=== PATIENT | male | born 1955 | race Caucasian/White ===

== ENCOUNTER 2020-05-16 09:04 | Inpatient (IN) ==
--- NOTE | 2020-04-19 14:13 | PAT Medication Instructions ---
Medication Instructions Date of Service April 19, 2020 Home Medications amlodipine-benazepril 1 cap PO QAM aspirin [Aspir-81] 81 mg PO DAILY atorvastatin 20 mg PO QAM bupropion HCl 150 mg PO QAM diclofenac sodium 75 mg PO UD PRN furosemide 20 mg PO QAM omeprazole 20 mg PO QAM ASK your surgeon for instructions diclofenac sodium 75 mg PO UD PRN DO NOT take the morning of surgery amlodipine-benazepril 1 cap PO QAM furosemide 20 mg PO QAM Take morning of surgery With a small sip of water, OTHERWISE NOTHING TO EAT OR DRINK AFTER MIDNIGHT: aspirin [Aspir-81] 81 mg PO DAILY atorvastatin 20 mg PO QAM bupropion HCl 150 mg PO QAM omeprazole 20 mg PO QAM Insulin Dependent Diabetic Patients * Test your blood sugar the morning of surgery * If Blood Sugar is GREATER THAN 150, take HALF of your regular dose of: * If Blood Sugar is LESS THAN 150, DO NOT TAKE ANY: Other Notes If you have any questions please call us at [phone] or [phone] or or [phone]
--- NOTE | 2020-04-23 08:06 | History & Physical Report ---
Date of Service April 23, 2020 date of surgery: 05-16-20 Assessment & Plan (1) Arthritis of right knee: Risks and benefits of procedure discussed in detail today, patient would like to proceed with a Right total knee replacement at [facility] as scheduled. will obtain medical clearance prior to surgery as well as obtain PATs at [facility]. Will place on ASA 81mg po bid x 1 month post op, f/u 2 weeks post op for routine post-operative care and x-ray, sooner if having any problems. will make arrangements for HHPT at the time of discharge. At this point in time, has failed conservative measures and would like to proceed with surgical intervention. The risks and benefits have been discussed including, but not limited to, risk of infection, nerve injury, stiffness, loss of motion, failure to improve, etc. Reasonable outcomes and options of treatment were discussed. An explanation of appropriate alternatives to the procedure that may be advantageous were discussed and their risks and benefits, as well as the risks and benefits of not proceeding with treatment. I offered to answer any additional inquiries concerning the treatment involved. All the patient's questions were answered. The patient is agreeable, understanding of the treatment plan and alternatives, and wishes to proceed with the treatment plan. History of Present Illness Chief Complaint: Right knee pain Primary Care Provider: Isabela Chan Mr Fox is a 65 year old male who complains of Right knee pain, presents for pre-op evaluation prior to a right total knee replacement at [facility]. he complains of pain and decreased range of motion. he states that the symptoms have been chronic non-traumatic and that his symptoms occur constantly. He is former patient of Dr Gallegos, has undergone both cortisone and visco injections without any relief. he has tried PO NSAIDs including IBU, Aleve and Diclofenac without relief. Currently the patient states that the symptoms are moderate and the pain is described as aching, dull and sharp. he has diffuse pain to the knee but greatest medial compartment. he rates his current pain as 8/10. Allergies Allergy/AdvReac Type Severity Reaction Status Date / Time No Known Allergies Allergy Mild Unverified 04/18/20 14:14 Home Medications Home Medications Medication Instructions Recorded Confirmed Type amlodipine-benazepril 1 cap PO QAM 04/18/20 04/18/20 History aspirin [Aspir-81] 81 mg PO DAILY 04/18/20 04/18/20 History atorvastatin 20 mg PO QAM 04/18/20 04/18/20 History bupropion HCl 150 mg PO QAM 04/18/20 04/18/20 History diclofenac sodium 75 mg PO UD PRN 04/18/20 04/18/20 History furosemide 20 mg PO QAM 04/18/20 04/18/20 History omeprazole 20 mg PO QAM 04/18/20 04/18/20 History Past Med/Surg History Medical History Acid reflux Hyperlipidemia Hypertension Morbid obesity Osteoarthritis Prediabetes A1C 6.4% 03/2020 Surgical History History of carpal tunnel surgery of left wrist History of carpal tunnel surgery of right wrist Family History Unknown No family history of adverse response to anesthesia Social History Preferred Language: Irish Communication Ability: Effective Electroplater Apprentice Required: No Beliefs That Will Affect Care: None Current Living Situation: Spouse Other Information That Helps Us Care for You: No Feels Safe at Home: Yes Smoking Status: Former smoker Do You Dip or Chew Tobacco: No ; Smoking End Date: >40 YR AGO ; Hx Alcohol Use: No Hx Substance Use: No Review of Systems Review of Systems: All systems reviewed & are unremarkable except as noted in HPI & below Constitutional: no fever, no chills and no sweats Respiratory: no cough and no dyspnea Cardiovascular: no chest pain, no dyspnea and no orthopnea Gastrointestinal: no abdominal pain, no nausea and no vomiting Musculoskeletal: as per Subjective / HPI Physical Exam Physical Exam: Ht: 5ft 8in Wt: 137.4kg BP: 148/89 Constitutional: WD/WN, vitals as above no acute distress Respiratory: normal respiratory effort, lungs clear to auscultation no respiratory distress, no labored breathing and does not use accessory muscles Cardiovascular: RRR, no murmur, no edema Gastrointestinal (Abdomen): normal bowel sounds, soft, nontender, no hepatosplenomegaly Musculoskeletal: Knee: + knee abnormal to inspection (Right knee), + deformity (varus), + effusion (+1 effusion), + limited ROM of knee (ROM 0/3/110), + knee ROM with crepitation, + joint line tenderness (medial joint line) and + Mahnaz's sign positive; no skin erythema, no ecchymosis, no valgus laxity, no varus laxity, anterior drawer test negative, Sultana's sign negative and pivot shift test negative Results & Data Results & Data ([facility]) Laboratory Results Laboratory Results WBC 6.83 K/uL (4.8-10.8) 04/23/20 11:45 RBC 6.03 M/uL (4.7-6.1) 04/23/20 11:45 Hgb 17.1 g/dL (14.0-18.0) 04/23/20 11:45 Hct 51.4 % (42-52) 04/23/20 11:45 MCV 85.2 fL (80-100) 04/23/20 11:45 MCH 28.4 pg (25-34) 04/23/20 11:45 MCHC 33.3 g/dL (32-36) 04/23/20 11:45 RDW Std Deviation 43.4 fL (36.4-46.3) 04/23/20 11:45 RDW Coeff of Imani 14.0 % (11.5-14.5) 04/23/20 11:45 Plt Count 255 K/uL (130-400) 04/23/20 11:45 MPV 9.2 fL (7.4-10.4) 04/23/20 11:45 Immature Gran % (Auto) 0.1 % 04/23/20 11:45 Neut % (Auto) 68.9 % 04/23/20 11:45 Lymph % (Auto) 19.3 % 04/23/20 11:45 Door % (Auto) 7.6 % 04/23/20 11:45 Eos % (Auto) 3.5 % 04/23/20 11:45 Baso % (Auto) 0.6 % 04/23/20 11:45 Neut # (Auto) 4.70 K/uL (1.4-6.5) 04/23/20 11:45 Lymph # (Auto) 1.32 K/uL (1.2-3.4) 04/23/20 11:45 Door # (Auto) 0.52 K/uL (0.11-0.59) 04/23/20 11:45 Eos # (Auto) 0.24 K/uL (0-0.5) 04/23/20 11:45 Baso # (Auto) 0.04 K/uL (0-0.2) 04/23/20 11:45 Immature Gran # (Auto) 0.01 K/uL (0.00-0.02) 04/23/20 11:45 PT 10.8 Seconds (9.0-12.0) 04/23/20 11:45 INR 1.0 (0.9-1.1) 04/23/20 11:45 APTT 27.9 Seconds (21.0-31.0) 04/23/20 11:45 PTT Ratio 1.0 04/23/20 11:45 Urine Color Dark Yellow 04/23/20 11:45 Urine Appearance Cloudy (Clear) A 04/23/20 11:45 Urine pH 5.0 (4.5-7.5) 04/23/20 11:45 Ur Specific [place] 1.045 (1.000-1.030) H 04/23/20 11:45 Urine Protein 2+ (Negative) H 04/23/20 11:45 Urine Glucose (UA) Negative (Negative) 04/23/20 11:45 Urine Ketones Trace (Negative) H 04/23/20 11:45 Urine Blood Negative (Negative) 04/23/20 11:45 Urine Nitrite Positive (Negative) A 04/23/20 11:45 Urine Bilirubin Negative (Negative) 04/23/20 11:45 Urine Urobilinogen Negative (Negative) 04/23/20 11:45 Ur Leukocyte Esterase Trace (Negative) H 04/23/20 11:45 Urine WBC (Auto) 1-5 /hpf (0-5) 04/23/20 11:45 Urine RBC (Auto) 0-4 /hpf (0-4) 04/23/20 11:45 U Hyaline Cast (Auto) 1-5 /lpf (0-5) 04/23/20 11:45 U Epithel Cells (Auto) 20-30 /lpf (0-5) H 04/23/20 11:45 Urine Bacteria (Auto) Negative (Negative) 04/23/20 11:45 Urine Mucus Present (None Prsent) A 04/23/20 11:45 Blood Type O Negative 04/23/20 11:45 Antibody Screen NEGATIVE 04/23/20 11:45 Diagnostic Findings right knee x-ray from March 2020 showing complete loss joint space medial compartment with overall varus alignment, there is also narrowing of the lateral compartment and patellofemoral joint. there is osteophyte formation, subchondral sclerosis noted, no loose bodies, no acute bony pathology. overall impression tricompartmental degenerative changes to the right knee with varus alignment.
--- NOTE | 2020-04-23 11:29 | Anesthesiology Consultation ---
Date of Service April 23, 2020 Assessment & Plan (1) Encounter for pre-operative examination: COVID Status: As of 04/23 assessment, patient denies travel to endemic area, known exposure/sick contacts, or symptoms of COVID19. Patient instructed to follow strict social distancing guidelines, wear a mask in public and avoid travel for 14 days prior to surgery. Preoperative COVID19 testing to be completed [place] [facility] [place]. Patient made aware to self-isolate as much as possible between COVID testing and surgery. Chart Review Chart Review: Acceptable Risk for Surgery (pending surgeon-ordered PCP clearance 05/09) and Patient seen in Pre Admission Testing Teaching & Discussion Instructed NPO after midnight before surgery, except medications with 15 cc of water. Medication instructions provided according to the PAT guidelines. History Surgery Operation Date: 05/16/20 11:20 Proposed Procedures p Right Total Knee Arthroplasty - Cristopher Spencer DO Height/Weight Height: 5 ft 8 in Weight: 137.1 kg Allergies Allergy/AdvReac Type Severity Reaction Status Date / Time No Known Allergies Allergy Mild Unverified 04/18/20 14:14 Medications Home Medications Medication Instructions Recorded Confirmed Last Taken amlodipine-benazepril 1 cap PO QAM 04/18/20 04/18/20 Unknown aspirin [Aspir-81] 81 mg PO DAILY 04/18/20 04/18/20 Unknown atorvastatin 20 mg PO QAM 04/18/20 04/18/20 Unknown bupropion HCl 150 mg PO QAM 04/18/20 04/18/20 Unknown diclofenac sodium 75 mg PO UD PRN 04/18/20 04/18/20 Unknown furosemide 20 mg PO QAM 04/18/20 04/18/20 Unknown omeprazole 20 mg PO QAM 04/18/20 04/18/20 Unknown Past Medical History Medical History Acid reflux Hyperlipidemia Hypertension Morbid obesity Osteoarthritis Prediabetes A1C 6.4% 03/2020 Exercise / Class Metabolic Activity III < 4 Walking/Shop/Light housework (No CP or SOB with ambulation, using cane for assistance at times due to knee pain) Past Family History Family History Unknown No family history of adverse response to anesthesia Past Surgical History Surgical History History of carpal tunnel surgery of left wrist History of carpal tunnel surgery of right wrist Past Anesthesia History No Hx of Anesthesia Complications and No Family Hx of Anesthesia Complications History of PONV No Hx of PONV and No Hx of Motion Sickness Social History Smoking Status: Former smoker Do You Dip or Chew Tobacco: No Smoking End Date: >40 YR AGO Hx Alcohol Use: No Hx Substance Use: No substance use type: does not use Review of Systems Pt denies any recent chest pain, shortness of breath, palpitations, cough, fever or URI. Physical Exam Vital Signs BP: 136/80 P: 55bpm SPO2: 94% RA T: 98.3 F R: 18 Constitutional + morbidly obese ENMT Mouth: + dental restorations (crown on lower R side) and + macroglossia; no chipped teeth and no loose teeth Thyromental Distance: > or= 3.5 Finger Breadths (3.5) Mallampati Class: III Neck + short neck and + thick neck; neck extension not limited Respiratory normal respiratory effort Auscultation: lungs clear to auscultation bilaterally and + diminished lung sounds (B/L) Cardiovascular Rate/Rhythm: regular rhythm and + bradycardic Heart Sounds: no murmur Testing Laboratory Results 04/23/20 11:45 PT 10.8 Seconds (9.0-12.0) 04/23/20 11:45 INR 1.0 (0.9-1.1) 04/23/20 11:45 APTT 27.9 Seconds (21.0-31.0) 04/23/20 11:45 Urine Color Dark Yellow 04/23/20 11:45 Urine Appearance Cloudy (Clear) A 04/23/20 11:45 Urine pH 5.0 (4.5-7.5) 04/23/20 11:45 Ur Specific [place] 1.045 (1.000-1.030) H 04/23/20 11:45 Urine Protein 2+ (Negative) H 04/23/20 11:45 Urine Glucose (UA) Negative (Negative) 04/23/20 11:45 Urine Ketones Trace (Negative) H 04/23/20 11:45 Urine Nitrite Positive (Negative) A 04/23/20 11:45 Ur Leukocyte Esterase Trace (Negative) H 07/06/20 11:45 Urine WBC (Auto) 1-5 /hpf (0-5) 04/23/20 11:45 Urine RBC (Auto) 0-4 /hpf (0-4) 04/23/20 11:45 U Hyaline Cast (Auto) 1-5 /lpf (0-5) 04/23/20 11:45 U Epithel Cells (Auto) 20-30 /lpf (0-5) H 04/23/20 11:45 Urine Bacteria (Auto) Negative (Negative) 04/23/20 11:45 Blood Type O Negative 04/23/20 11:45 Antibody Screen NEGATIVE 04/23/20 11:45 03/29/20 SODIUM: 140 POTASSIUM: 5.1 CHLORIDE: 103 CO2: 30 BUN: 21 CREATININE: 1.1 GLUCOSE: 127 A1C: 6.4% Electrocardiogram Date: 04/23/20 Findings: + SB @ (56bpm) Possible inferior infarct, age undetermined. No significant change compared to EKG from 08/13/11. Chest X-Ray Date: 04/23/20 IMPRESSION: 1. No acute cardiopulmonary findings. 2. Stable prominence of the contour for the ascending aorta since radiographs of August 13, 2011. This could be due to a tortuous or dilated ascending aorta. 3. Stable mild cardiomegaly. Echocardiogram Date: 08/21/15 1. Normal left ventricular size and systolic function. EF 60-65%. No regional wall motion abnormalities visualized. Mild concentric left ventricular hypertrophy. Type II diastolic dysfunction. 2. The left atrium is mildly dilated. 3. Aortic valve sclerosis mild, without significant aortic valvular stenosis. 4. Technically difficult study; enhanced with IV Definity. 5. No prior study available for comparison.
--- NOTE | 2020-04-23 12:13 | XRay Report ---
XR chest Pre-admission PA/Lat CLINICAL HISTORY: Preoperative evaluation. COMPARISON STUDY: Chest radiograph August 13, 2011. FINDINGS: Lung volumes are normal. Lungs are clear. There is no pneumothorax or pleural effusion. Mil d cardiomegaly is unchanged. Mediastinal contours are stable. Prominence of the contour for the ascen ding aorta is unchanged. There is no evidence for pulmonary edema. IMPRESSION: 1. No acute cardiopulmonary findings. 2. Stable prominence of the contour for the ascending aorta since radiographs of August 13, 2011. Th is could be due to a tortuous or dilated ascending aorta. 3. Stable mild cardiomegaly. ACT 112: Negative or not required by law. Electronically signed by: Amol Verdin M.D. 04/23/2020 12:11 PM
[2020-04-23 12:14] LABS: Mean Corpuscular Hgb Conc 33.3 g/dL (32-36); Mean Platelet Volume 9.2 fL (7.4-10.4); Platelet Count 255 K/uL (130-400)
[2020-04-23 12:17] LABS: Appearance Urine Cloudy (Clear); Bacteria Urine Automated Negative (Negative); Blood Urine Negative (Negative); Color Urine Dark Yellow; Epithelial Cell Urine Auto 20-30 /lpf (0-5); Glucose Urine UA Negative (Negative); Ketones Urine Trace (Negative); Leukocyte Esterase Urine Trace (Negative); Nitrite Urine Positive (Negative); Protein Urine 2+ (Negative); Specific Gravity Urine 1.045 (1.000-1.030); Urobilinogen Urine Negative (Negative)
[2020-04-23 12:25] LABS: Partial Thromboplastin Time 27.9 Seconds (21.0-31.0); Prothrombin Time 10.8 Seconds (9.0-12.0)
[2020-04-23 12:29] LABS: Bilirubin Urine Negative (Negative); Ictotest Urine Negative (Negative)
[2020-04-23 12:30] LABS: Mucus Urine Present (None Prsent); RBC Urine Automated 0-4 /hpf (0-4)
[2020-04-23 12:39] LABS: Basophils # (auto) 0.04 K/uL (0-0.2); Basophils % (auto) 0.6 %; Eosinophils # (auto) 0.24 K/uL (0-0.5); Eosinophils % (auto) 3.5 %; Hematocrit (blood only) 51.4 % (42-52); Hemoglobin 17.1 g/dL (14.0-18.0); Immature Granulocytes # (auto) 0.01 K/uL (0.00-0.02); Immature Granulocytes % (auto) 0.1 %; Lymphocytes # (auto) 1.32 K/uL (1.2-3.4); Lymphocytes % (auto) 19.3 %; Mean Corpuscular Hemoglobin 28.4 pg (25-34); Mean Corpuscular Volume 85.2 fL (80-100); Monocytes # (auto) 0.52 K/uL (0.11-0.59); Monocytes % (auto) 7.6 %; Neutrophils % (auto) 68.9 %; RDW Standard Deviation 43.4 fL (36.4-46.3); Red Blood Count 6.03 M/uL (4.7-6.1); White Blood Count 6.83 K/uL (4.8-10.8)
--- NOTE | 2020-04-24 06:25 | Electrocardiogram Report ---
Test Reason : Blood Pressure : / mmHG Vent. Rate : 056 BPM Atrial Rate : 056 BPM P-R Int : 176 ms QRS Dur : 088 ms QT Int : 428 ms P-R-T Axes : 048 029 -04 degrees QTc Int : 413 ms Sinus bradycardia Possible Inferior infarct , age undetermined Abnormal ECG When compared with ECG of 13-AUG-2011 14:07, No significant change was found Confirmed by Lambert Patel ([id number]) on 04/24/2020 6:25:03 AM Referred By: Cristopher Spencer Confirmed By:Lambert Patel
[~2020-05-16 09:04] MED LIST: ACETAMINOPHEN 500 MG TAB PO SCH; BUPIVACAINE 0.5 % 5 MG/1 ML PF 10ML VIAL ONE; CEFAZOLIN 3000MG 72.5 ML IV SCH; CeleBREX 200 MG CAP PO SCH; EPINEPHrine INJ 1 MG/ML AMP ONE; FAMOTIDINE 20 MG TAB PO SCH; GABAPENTIN 600 MG DOSE PO SCH; LR 500ML BOLUS, THEN 15ML/HR IV SCH; METOCLOPRAMIDE HCL 10 MG TABLET PO SCH; ROPIVACAINE 0.5% 5 MG/ML 30 ML VIAL ONE; ROPIVACAINE 0.5% HCL/PF 150 MG, BUPIVACAINE 0.5% MPF 30 ML, EPINEPHrine 30MG/30ML (OR U... INFIL SCH; TRANEXAMIC ACID 1,000 MG **IV Intra-op IV SCH; TRANEXAMIC ACID 1,000 MG **IV Pre-op IV SCH; dexAMETHasone 4 MG TAB PO SCH
[2020-05-16] MEDS ORDERED: MIDAZOLAM HCL 1 MG/ML 2ML VIAL ONE (10:00)
[2020-05-16] MEDS ORDERED: PROPOFOL IV EMULSION 10 MG/ML 20 ML VIAL IV ONE ×3 (10:00)
[2020-05-16] MEDS ORDERED: fentaNYL citrate 100 MCG/2 ML VIAL ONE (10:00)
[2020-05-16] MEDS ORDERED: LIDOCAINE HCL 2% 2 ML VIAL/AMP(20MG/ML) INFIL ONE (10:01)
[2020-05-16] MEDS ORDERED: ONDANSETRON INJ 2 MG/ML 2 ML VIAL ONE (10:01)
--- NOTE | 2020-05-16 10:01 | History & Physical Bridge Note ---
Date of Service May 16, 2020 History & Physical Bridge Note I have examined the patient, reviewed the History & Physical and in the interval since the performance of the History & Physical I have noted the following changes of clinical significance: no changes noted
[2020-05-16] MEDS ORDERED: BACITRACIN INJ 50,000 UNIT VIAL ONE (10:40)
[2020-05-16] MEDS ORDERED: ORTHO JOINT ANESTHETIC ONE (10:40)
--- NOTE | 2020-05-16 12:57 | Operative Report ---
Post Operative Report Pre & Post Diagnosis Operation Date: 05/16/20 11:20 Pre-Op Diagnosis: RIGHT KNEE OSTEOARTHRITIS Post-Op Diagnosis: RIGHT KNEE OSTEOARTHRITIS I identified the patient and participated in the time-out.: Yes Procedure Operation Date: 05/16/20 11:20 Actual Procedures p Right Total Knee Arthroplasty(Right) utilizing [employer] journey to non- block total knee arthroplasty size 6 femur 5 tibia 9 polyethylene 32 oval patella- Cristopher Spencer DO Surgeon Cristopher Spencer DO Motorman/Woman Hal CHAVEZ Estimated Blood Loss 5 Findings Consistent with Post-Op Diagnosis Patient presents with ongoing complaints of pain trouble to the right knee no response to conservative management patient has varus alignment subchondral cystic changes marginal osteophytes [id number] eburnated bone moderate to large effusion Specimens Bone and cartilage Drains Medium bore Hemovac Anesthesia Type MAC Spinal Regional Complications none Disposition Accompanied Patient To Recovery: No Disposition: Recovery Room Indications Patient presents with severe end-stage DJD varus alignment the above intraoperative findings noted patient fell attempted conservative management clinic physical therapy anti-inflammatories relative rest activity modification corticosteroid injections Visco supplementation. Description of Procedure After proper prepping and draping of the Right lower extremity anterior midline incision was made over the region of the extensor extensor mechanism after meticulous hemostasis was obtained and maintained in subcutaneous tissues a medial parapatellar incision was made The patella was subluxed lateralward the medial lateral gutter were cleaned from any hypertrophic synovitis and scar tissue of the distal femoral block was placed and the distal femoral osteotomy cut was made subsequently the chamfers anterior and posterior osteotomy cuts were made utilizing the 4-in-1 block the tibia was subsequently subluxed anteriorward medial and ateral meniscal remnants were excised in their entirety remnants of the anterior and posterior cruciate ligaments were excised in their entirety excellent exposure of the proximal tibia was obtained the tibial osteotomy guide was placed on the proximal tibial osteotomy cut was made once again the knee was irrigated with copious amounts of sterile saline solution the patella was subsequently everted lateralward thickened scar tissue around the patella was removed the patella was subsequently cut utilizing a freehand technique and was drilled prepared for final preparation and placement of patella socially flexion-extension gaps were checked and the equal and symmetric trials were placed to the appropriate femoral and tibial trials with poly-spacer being placed for equal flexion and extension gaps and full range of motion including extension to 0 and flexion to 140 the trial components after having b een taken to recovery range of motion was subsequently removed meticulous hemostasis was obtained and maintained subsequently a knee block injection of joint cocktail including ropivacaine 0.5% 150 mg. Bupivacaine 0.5% epinephrine 1-200,030 mL's toradol 30 mg dexamethasone 4 mg ketamine 10 mg clonidine 100 micrograms normal saline solution 30 mg was infiltrated into the soft tissues of the posterior knee medial lateral gutters and periosteal synovium special attention was paid to protect neurovascular structures at all times subsequently trial components having been removed the knee was irrigated with sterile saline solution. debris was removed the proximal tibia was subsequently prepared and was made ready for the placement of the tibial component tibial component was also cemented and tamped into position the femoral component was subsequently placed and cemented in the position the patellar component was subsequently cemented in position because hemostasis once again obtained and maintained wound having been thoroughly irrigated with debridement and debridement lavage was performed as well as a medial parapatellar incision closed with #1 Vicryl in interrupted fashion subcutaneous was closed with #2 Vicryl skin was closed with skin clips. PA-C was necessary for prepping and drapping as well as wound closure of deep fascia Sub cutaneous tissue and skin and was necessary for the case. A sterile compressive dressing was placed patient was taken to recovery in stable condition of report dictated by Tj I attest to the content of the Intraoperative Record and any orders documented therein. Any exceptions are noted below. I attest to the content of the Intraoperative Record and any orders documented therein. Any exceptions are noted below.
[2020-05-16] MEDS ORDERED: ePHEDrine sulfate 50 MG/ML AMP ONE (13:14)
--- NOTE | 2020-05-16 14:04 | XRay Report ---
XR knee RT 1 or 2V routine CLINICAL HISTORY: Surgical Post Op COMPARISON: 01/18/2011 DISCUSSION: There are postsurgical changes of a total right knee arthroplasty and patellar resurfacin g. The femoral and tibial components appear well seated. There is gas present within the soft tissues consistent with recent surgery. There are overlying skin eliceo and surgical drains. IMPRESSION: Postsurgical changes of a total right hip arthroplasty. ACT 112: Negative or not required by law. Electronically signed by: Enrique Cardoza M.D. 05/16/2020 2:03 PM
--- NOTE | 2020-05-16 15:02 | Anesthesiology Progress Note ---
Date of Service May 16, 2020 Anesthesia Post Procedure Vital Signs Vital Signs: Temp Pulse Pulse Resp BP Pulse Ox 05/16/20 15:00 67 16 130/69 93 05/16/20 14:45 66 14 122/71 93 05/16/20 14:30 65 17 122/55 L 92 05/16/20 14:15 68 15 120/51 L 93 05/16/20 14:00 36.8 C 68 16 121/66 92 05/16/20 13:50 70 16 115/51 L 95 05/16/20 13:40 71 15 108/53 L 97 05/16/20 13:33 36.2 C L 71 16 104/62 98 05/16/20 10:30 57 L 18 158/84 H 94 05/16/20 10:03 36.8 C 59 L 18 155/86 H 94 Pain Intensity Right Knee: Pain Intensity: 4 Transfer of Care Handoff Completed per policy Notes Mental Status: alert / awake / arousable and participated in evaluation Patient Amnestic to Procedure: Yes Nausea / Vomiting: adequately controlled Pain: adequately controlled Airway Patency, RR, SpO2: stable & adequate BP & HR: stable & adequate Hydration State: stable & adequate Neuraxial Anesthesia: was administered and sensory block is resolving Anesthetic Complications: no major complications apparent and Pt Satisfied with anesthetic care
[2020-05-16] MEDS ORDERED: MAGNESIUM HYDROXIDE SUSP 30 ML UDC PO PRN (16:00)
[2020-05-16] MEDS ORDERED: ONDANSETRON INJ 2 MG/ML 2 ML VIAL IV PRN (16:00)
[2020-05-16] MEDS ORDERED: HYDROmorphone INJ 0.5 MG/0.5 ML SYR IV PRN (16:00)
[2020-05-16] MEDS ORDERED: NALOXONE HCL 0.4 MG/1 ML VIAL/CARP IV PRN (16:00)
[2020-05-16] MEDS ORDERED: bisacodyL 10 MG SUPP PR PRN (16:00)
[2020-05-16] MEDS: SODIUM CHLORIDE 0.9% 1000ML 1,000 ML IV SCH (16:34)
[2020-05-16] MEDS: ACETAMINOPHEN 500 MG TAB PO SCH ×2 (16:34→21:40)
[2020-05-16] MEDS: FERROUS GLUCONATE 324 MG TAB PO SCH (17:13)
[2020-05-16] MEDS: OXYCODONE HCL IR 5 MG TAB (IMMEDIATE RELEASE) PO PRN (20:23)
[2020-05-16] MEDS: CEFAZOLIN 2000MG 2,000 MG/15 ML SYR IV SCH (20:23)
[2020-05-16] MEDS ORDERED: SENNA 8.6 MG TAB PO SCH (21:00)
[2020-05-16] MEDS: DOCUSATE SODIUM 100 MG CAP PO SCH (21:40)
[2020-05-16] MEDS: ASPIRIN 81 MG ECTAB PO SCH (21:40)
[2020-05-17] MEDS: SODIUM CHLORIDE 0.9% 1000ML 1,000 ML IV SCH (04:33)
[2020-05-17] MEDS: CEFAZOLIN 2000MG 2,000 MG/15 ML SYR IV SCH (05:31)
[2020-05-17] MEDS: ACETAMINOPHEN 500 MG TAB PO SCH ×2 (05:32→13:23)
[2020-05-17 07:02] LABS: Hemoglobin 14.7 g/dL (14.0-18.0); Mean Corpuscular Hemoglobin 28.2 pg (25-34); Mean Corpuscular Hgb Conc 33.4 g/dL (32-36); Mean Corpuscular Volume 84.5 fL (80-100); Platelet Count 243 K/uL (130-400); RDW Coefficient of Variation 13.8 % (11.5-14.5); RDW Standard Deviation 42.9 fL (36.4-46.3); Red Blood Count 5.21 M/uL (4.7-6.1); White Blood Count 15.48 K/uL (4.8-10.8)
[2020-05-17] MEDS: ASPIRIN 81 MG ECTAB PO SCH (07:21)
[2020-05-17] MEDS: DOCUSATE SODIUM 100 MG CAP PO SCH (07:21)
[2020-05-17] MEDS: FERROUS GLUCONATE 324 MG TAB PO SCH (07:22)
[2020-05-17] MEDS: OXYCODONE HCL IR 5 MG TAB (IMMEDIATE RELEASE) PO PRN ×2 (07:28→11:54)
[2020-05-17 07:38] LABS: BUN Creatinine Ratio 21.6 (10-20); Calcium 8.5 mg/dl (8.5-10.1); Creatinine Clr Calc Pharmacy 91.8 ml/min; Est GFR (Non-African American) 71.6; Potassium 4.1 mmol/L (3.5-5.1)
--- NOTE | 2020-05-17 07:59 | Orthopedic Progress Note ---
Date of Service May 17, 2020 Assessment & Plan (1) Arthritis of right knee: Postop day 1 status post right total knee arthroplasty. PT/OT protocols. Weightbearing as tolerated. DVT prophylaxis-aspirin p.o. twice daily, SCDs, EVELYNE umaña. Pain management as written. DC planning-Home health services upon discharge. Admission and Anticipated Discharge Date Admission Date: May 16, 2020 Subjective Postop day 1 Patient currently sitting up in his chair at the bedside. No complaints this morning. Denies any shortness of breath, chest pain, lightheadedness. States he is having a little soreness this morning in the knee but overall, pain is controlled. Patient states he is in a do home health services upon discharge. Physical Exam Physical Exam: Dressings are clean, dry, and intact. Calves are soft nontender. Neurovascular is intact. Toes are mobile. He has good dorsiflexion and plantarflexion of the right foot. VAC drainage was 175 from the previous shift. Results [facility]) Vital Signs (Past 12 Hours) Vital Signs Temp Pulse Resp BP BP Pulse Ox 05/17/20 07:16 36.8 C 71 17 156/78 H 95 05/17/20 04:13 36.6 C 67 14 150/80 H 96 05/16/20 23:11 36.6 C 72 14 154/72 H 92 Laboratory Results Laboratory Results WBC 15.48 K/uL (4.8-10.8) H 05/17/20 06:49 RBC 5.21 M/uL (4.7-6.1) 05/17/20 06:49 Hgb 14.7 g/dL (14.0-18.0) 05/17/20 06:49 Hct 44.0 % (42-52) 05/17/20 06:49 MCV 84.5 fL (80-100) 05/17/20 06:49 MCH 28.2 pg (25-34) 05/17/20 06:49 MCHC 33.4 g/dL (32-36) 05/17/20 06:49 RDW Std Deviation 42.9 fL (36.4-46.3) 05/17/20 06:49 RDW Coeff of Imani 13.8 % (11.5-14.5) 05/17/20 06:49 Plt Count 243 K/uL (130-400) 05/17/20 06:49 MPV 9.0 fL (7.4-10.4) 05/17/20 06:49 Immature Gran % (Auto) 0.1 % 04/23/20 11:45 Neut % (Auto) 68.9 % 04/23/20 11:45 Lymph % (Auto) 19.3 % 04/23/20 11:45 Luce % (Auto) 7.6 % 04/23/20 11:45 Eos % (Auto) 3.5 % 04/23/20 11:45 Baso % (Auto) 0.6 % 04/23/20 11:45 Neut # (Auto) 4.70 K/uL (1.4-6.5) 04/23/20 11:45 Lymph # (Auto) 1.32 K/uL (1.2-3.4) 04/23/20 11:45 Luce # (Auto) 0.52 K/uL (0.11-0.59) 04/23/20 11:45 Eos # (Auto) 0.24 K/uL (0-0.5) 04/23/20 11:45 Baso # (Auto) 0.04 K/uL (0-0.2) 04/23/20 11:45 Immature Gran # (Auto) 0.01 K/uL (0.00-0.02) 04/23/20 11:45 PT 10.8 Seconds (9.0-12.0) 04/23/20 11:45 INR 1.0 (0.9-1.1) 04/23/20 11:45 APTT 27.9 Seconds (21.0-31.0) 04/23/20 11:45 PTT Ratio 1.0 04/23/20 11:45 Sodium 141 mmol/L (136-145) 05/17/20 06:49 Potassium 4.1 mmol/L (3.5-5.1) 05/17/20 06:49 Chloride 110 mmol/L (98-107) H 05/17/20 06:49 Carbon Dioxide 25 mmol/L (21-32) 05/17/20 06:49 Anion Gap 6.0 (3-11) 05/17/20 06:49 BUN 23 mg/dl (7-18) H 05/17/20 06:49 Creatinine 1.08 mg/dl (0.6-1.4) 05/17/20 06:49 Est Cr Clr Drug Dosing 91.8 ml/min 05/17/20 06:49 Est GFR ( Amer) 83.0 05/17/20 06:49 Est GFR (Non-Af Amer) 71.6 05/17/20 06:49 BUN/Creatinine Ratio 21.6 (10-20) H 05/17/20 06:49 Glucose 147 mg/dl (70-99) H 05/17/20 06:49 Calcium 8.5 mg/dl (8.5-10.1) 05/17/20 06:49 Urine Color Dark Yellow 04/23/20 11:45 Urine Appearance Cloudy (Clear) A 04/23/20 11:45 Urine pH 5.0 (4.5-7.5) 04/23/20 11:45 Ur Specific [place] 1.045 (1.000-1.030) H 04/23/20 11:45 Urine Protein 2+ (Negative) H 04/23/20 11:45 Urine Glucose (UA) Negative (Negative) 04/23/20 11:45 Urine Ketones Trace (Negative) H 04/23/20 11:45 Urine Blood Negative (Negative) 04/23/20 11:45 Urine Nitrite Positive (Negative) A 04/23/20 11:45 Urine Bilirubin Negative (Negative) 04/23/20 11:45 Urine Urobilinogen Negative (Negative) 04/23/20 11:45 Ur Leukocyte Esterase Trace (Negative) H 04/23/20 11:45 Urine WBC (Auto) 1-5 /hpf (0-5) 04/23/20 11:45 Urine RBC (Auto) 0-4 /hpf (0-4) 04/23/20 11:45 U Hyaline Cast (Auto) 1-5 /lpf (0-5) 04/23/20 11:45 U Epithel Cells (Auto) 20-30 /lpf (0-5) H 04/23/20 11:45 Urine Bacteria (Auto) Negative (Negative) 04/23/20 11:45 Urine Mucus Present (None Prsent) A 04/23/20 11:45 Blood Type O Negative 04/23/20 11:45 Antibody Screen NEGATIVE 04/23/20 11:45
[2020-05-17] MEDS ORDERED: METOPROLOL SUCC 50MG EXT REL TAB PO SCH (09:00)
[2020-05-17] MEDS ORDERED: ENALAPRIL MALEATE 10 MG TAB PO SCH (09:00)
[2020-05-17] MEDS ORDERED: PANTOprazole 40 MG TAB PO SCH (09:00)
[2020-05-17] MEDS ORDERED: ATORVASTATIN 20 MG TAB PO SCH (09:00)
[2020-05-17] MEDS ORDERED: MULTIVITAMIN TAB PO SCH (09:00)
[2020-05-17] MEDS ORDERED: AMLODIPINE BESYLATE 5 MG TAB PO SCH (09:00)
[2020-05-17] MEDS ORDERED: BuPROPion XL 150 MG TABCR PO SCH (09:00)
--- NOTE | 2020-05-21 13:13 | Discharge Summary ---
Date of Service May 21, 2020 Admission HPI Per Admitting Provider Mr Fox is a 65 year old male who complains of Right knee pain, presents for pre-op evaluation prior to a right total knee replacement at [facility]. he complains of pain and decreased range of motion. he states that the symptoms have been chronic non-traumatic and that his symptoms occur constantly. He is former patient of Dr Gallegos, has undergone both cortisone and visco injections without any relief. he has tried PO NSAIDs including IBU, Aleve and Diclofenac without relief. Currently the patient states that the symptoms are moderate and the pain is described as aching, dull and sharp. he has diffuse pain to the knee but greatest medial compartment. he rates his current pain as 8/10. Admission Exam Per Admitting Provider Physical Exam: Ht: 5ft 8in Wt: 137.4kg BP: 148/89 Constitutional: WD/WN, vitals as above no acute distress Respiratory: normal respiratory effort, lungs clear to auscultation no respiratory distress, no labored breathing and does not use accessory muscles Cardiovascular: RRR, no murmur, no edema Gastrointestinal (Abdomen): normal bowel sounds, soft, nontender, no hepatosplenomegaly Musculoskeletal: Knee: + knee abnormal to inspection (Right knee), + deformity (varus), + effusion (+1 effusion), + limited ROM of knee (ROM 0/3/110), + knee ROM with crepitation, + joint line tenderness (medial joint line) and + Mahnaz's sign positive; no skin erythema, no ecchymosis, no valgus laxity, no varus laxity, anterior drawer test negative, Sultana's sign negative and pivot shift test negative Principal Diagnosis Right knee DJD Discharge Data Allergies Allergy/AdvReac Type Severity Reaction Status Date / Time No Known Allergies Allergy Mild Unverified 05/16/20 09:49 Consultations 05/16/20 16:00 Consult Case Management - Discharge Planning Routine Procedures Performed Operation Date: 05/16/20 11:20 Actual Procedures p Right Total Knee Arthroplasty(Right) - Cristopher Spencer DO Ordered Studies 05/16/20 05:00 US - OR guided needle placemen Routine Hospital Course (1) Arthritis of right knee: Assessment & Plan (1) Arthritis of right knee: Postop day 1 status post right total knee arthroplasty. PT/OT protocols. Weightbearing as tolerated. DVT prophylaxis-aspirin p.o. twice daily, SCDsapna, EVELYNE umaña. Pain management as written. DC planning-Home health services upon discharge. Admission and Anticipated Discharge Date Admission Date: May 16, 2020 Subjective Postop day 1 Patient currently sitting up in his chair at the bedside. No complaints this morning. Denies any shortness of breath, chest pain, lightheadedness. States he is having a little soreness this morning in the knee but overall, pain is controlled. Patient states he is in a do home health services upon discharge. Physical Exam Physical Exam: Dressings are clean, dry, and intact. Calves are soft nontender. Neurovascular is intact. Toes are mobile. He has good dorsiflexion and plantarflexion of the right foot. VAC drainage was 175 from the previous shift. Results & Data ([facility]) Vital Signs (Past 12 Hours) Vital Signs Temp Pulse Resp BP BP Pulse Ox 05/17/20 07:16 36.8 C 71 17 156/78 H 95 05/17/20 04:13 36.6 C 67 14 150/80 H 96 05/16/20 23:11 36.6 C 72 14 154/72 H 92 Laboratory Results Laboratory Results WBC 15.48 K/uL (4.8-10.8) H 05/17/20 06:49 RBC 5.21 M/uL (4.7-6.1) 05/17/20 06:49 Hgb 14.7 g/dL (14.0-18.0) 05/17/20 06:49 Hct 44.0 % (42-52) 05/17/20 06:49 MCV 84.5 fL (80-100) 05/17/20 06:49 MCH 28.2 pg (25-34) 05/17/20 06:49 MCHC 33.4 g/dL (32-36) 05/17/20 06:49 RDW Std Deviation 42.9 fL (36.4-46.3) 05/17/20 06:49 RDW Coeff of Imani 13.8 % (11.5-14.5) 05/17/20 06:49 Plt Count 243 K/uL (130-400) 05/17/20 06:49 MPV 9.0 fL (7.4-10.4) 05/17/20 06:49 Immature Gran % (Auto) 0.1 % 04/23/20 11:45 Neut % (Auto) 68.9 % 04/23/20 11:45 Lymph % (Auto) 19.3 % 04/23/20 11:45 [place] % (Auto) 7.6 % 04/23/20 11:45 Eos % (Auto) 3.5 % 04/23/20 11:45 Baso % (Auto) 0.6 % 04/23/20 11:45 Neut # (Auto) 4.70 K/uL (1.4-6.5) 04/23/20 11:45 Lymph # (Auto) 1.32 K/uL (1.2-3.4) 04/23/20 11:45 [place] # (Auto) 0.52 K/uL (0.11-0.59) 04/23/20 11:45 Eos # (Auto) 0.24 K/uL (0-0.5) 04/23/20 11:45 Baso # (Auto) 0.04 K/uL (0-0.2) 04/23/20 11:45 Immature Gran # (Auto) 0.01 K/uL (0.00-0.02) 04/23/20 11:45 PT 10.8 Seconds (9.0-12.0) 04/23/20 11:45 INR 1.0 (0.9-1.1) 04/23/20 11:45 APTT 27.9 Seconds (21.0-31.0) 04/23/20 11:45 PTT Ratio 1.0 04/23/20 11:45 Sodium 141 mmol/L (136-145) 05/17/20 06:49 Potassium 4.1 mmol/L (3.5-5.1) 05/17/20 06:49 Chloride 110 mmol/L (98-107) H 05/17/20 06:49 Carbon Dioxide 25 mmol/L (21-32) 05/17/20 06:49 Anion Gap 6.0 (3-11) 05/17/20 06:49 BUN 23 mg/dl (7-18) H 05/17/20 06:49 Creatinine 1.08 mg/dl (0.6-1.4) 05/17/20 06:49 Est Cr Clr Drug Dosing 91.8 ml/min 05/17/20 06:49 Est GFR ( Amer) 83.0 05/17/20 06:49 Est GFR (Non-Af Amer) 71.6 05/17/20 06:49 BUN/Creatinine Ratio 21.6 (10-20) H 05/17/20 06:49 Glucose 147 mg/dl (70-99) H 05/17/20 06:49 Calcium 8.5 mg/dl (8.5-10.1) 05/17/20 06:49 Urine Color Dark Yellow 04/23/20 11:45 Urine Appearance Cloudy (Clear) A 04/23/20 11:45 Urine pH 5.0 (4.5-7.5) 04/23/20 11:45 Ur Specific [place] 1.045 (1.000-1.030) H 04/23/20 11:45 Urine Protein 2+ (Negative) H 04/23/20 11:45 Urine Glucose (UA) Negative (Negative) 04/23/20 11:45 Urine Ketones Trace (Negative) H 04/23/20 11:45 Urine Blood Negative (Negative) 04/23/20 11:45 Urine Nitrite Positive (Negative) A 04/23/20 11:45 Urine Bilirubin Negative (Negative) 04/23/20 11:45 Urine Urobilinogen Negative (Negative) 04/23/20 11:45 Ur Leukocyte Esterase Trace (Negative) H 04/23/20 11:45 Urine WBC (Auto) 1-5 /hpf (0-5) 04/23/20 11:45 Urine RBC (Auto) 0-4 /hpf (0-4) 04/23/20 11:45 U Hyaline Cast (Auto) 1-5 /lpf (0-5) 04/23/20 11:45 U Epithel Cells (Auto) 20-30 /lpf (0-5) H 04/23/20 11:45 Urine Bacteria (Auto) Negative (Negative) 04/23/20 11:45 Urine Mucus Present (None Prsent) A 04/23/20 11:45 Blood Type O Negative 04/23/20 11:45 Antibody Screen NEGATIVE 04/23/20 11:45 Total Time Total Time Spent Total Time Spent (In Minutes): 5 Discharge Plan Discharge Items Patient Disposition: Home - Home Health Services Reason For Visit: Right knee osteoarthritis Discharge Diagnosis: Right knee osteoarthritis Activity: Per Instructions section Weightbearing: Right weightbearing Weightbearing Comment: As tolerated with walker Non-emergency contact: Surgeon Call non-emergency contact if: your pain is not controlled, your temperature is above 101.5, your wound has increased redness and your wound has increased drainage Follow-up/Referrals: Isabela Chan N.P. [Primary Care Provider] - Diet: Heart Healthy Addtl Attending Provider Instructions: DO NOT TAKE ANY HYDROCODONE TABLETS THAT YOU MAY HAVE AT HOME WHILE TAKING THE OXYCODONE. HOME HEALTH WILL REMOVE YOUR DRESSING AND DRAIN ON Thursday05/18/2020 ACTIVITY RECOMMENDATIONS: SELF CARE INSTRUCTIONS AFTER TOTAL KNEE REPLACEMENT A. You may need to continue a physical therapy program after discharge from the hospital. There are several options available to you. Your doctor will assist you in selecting the best one for you. 1. An out-patient facility 2 to 3 times a week for therapy or home therapy. 2. Continue working on all exercises taught to you in the hospital. Your goals should be to increase bending of your knee to 90 degrees and beyond and to fully straighten your knee. B. You may progress at your own pace from walking with a walker or crutches to a cane; then to no assistive devices. C. Make walking a part of your daily routine. Be up as much as comfortable with rest periods throughout the day. Rest with leg elevation is very important. Use the ice wrap frequently for the first 3-4 weeks. D. There are no restrictions on activities. You may ride in a car, shop, participate in racket stringer and all social activities. E. Wear the long elastic stockings (EVELYNE hose) 20 hours a day for 2 weeks after surgery. They can be removed several times a day for laundering and for a bath. F. You may shower, no tub baths until cleared by your doctor. SPECIAL CARE INSTRUCTIONS: VERY IMPORTANT TO READ AND REVIEW A. There are a few signs you need to watch for after you are home. Call [facility] if you notice any of the followin. Increased severe knee pain. Some pain is expected especially when you exercise. 2. Increased swelling in your leg or knee; pain or swelling of the calf muscle in either lower leg. 3. Any fluid drainage from the incision. 4. Shortness of breath or chest pain. B. Please call [facility] at if you have any concerns or questions about your operation or recovery. The doctor or his nurse will return your call promptly. C. You must take antibiotics before dental work, bladder, bowel or other surgery. Your doctor will provide you with a permanent care to carry describing this precaution. IMPORTANT: * REMEMBER TO TAKE ASPIRIN, 81 MG, TWICE DAILY FOR 4 WEEKS UNLESS OTHERWISE DIRECTED. THIS IS YOUR BLOOD THINNER. * HIGH RISK PATIENTS MAY BE PRESCRIBED A STRONGER BLOOD THINNER. THIS WILL BE PROVIDED AT DISCHARGE. * CALL IF INCREASED PAIN, REDNESS, DRAINAGE OR FEVER GREATER THAT 101. * WEAR EVELYNE HOSE 20 HOURS PER DAY FOR 2 WEEKS. * RAMA Dressing - This is a large suction dressing covering your incision. This will help pull any excess drainage from the wound and allow your incision to heal properly. You may shower with this if you can keep the unit outside of the shower. If any bleeding or leakage is noted please call your doctor's office. This will remain on your incision for 7 days and then should be removed. This can be done yourself or by the home nursing staff if applicable. The entire unit is disposable once removed. Once removed, keep incision clean and dry. If redness or drainage is noted, please call your surgeon. . FOLLOW UP VISIT: If appointment is not already scheduled: Please call [facility] to make a follow-up appointment for 2 weeks after your surgery at . Stand-Alone Forms: My Clear [employer]vant[employer] Collar, Smoking Cessation Medications and DC Order Prescriptions: New sennosides [Senokot] 8.6 mg Tablet 17.2 mg PO HS Qty: 30 RF: 0 aspirin 81 mg Tablet,Delayed Release (Dr/Ec) 81 mg PO BID 30 Days Qty: 60 RF: 0 acetaminophen 500 mg Tablet 1,000 mg PO Q8 14 Days Qty: 84 RF: 0 oxycodone 5 mg Tablet 5 mg PO Q4H MDD 6 PRN (Reason: pain) Qty: 30 RF: 0 Continued atorvastatin 20 mg Tablet 20 mg PO QAM RF: 0 omeprazole 20 mg Capsule,Delayed Release(Dr/Ec) 20 mg PO QAM RF: 0 furosemide 20 mg Tablet 20 mg PO QAM RF: 0 amlodipine-benazepril 10-20 mg Capsule 1 cap PO QAM RF: 0 bupropion HCl 150 mg Tablet Extended Release 24 Hr 150 mg PO QAM RF: 0 metoprolol succinate 100 mg Tablet Extended Release 24 Hr 100 mg PO DAILY RF: 0 Discontinued aspirin [Aspir-81] 81 mg Tablet,Delayed Release (Dr/Ec) 81 mg PO DAILY RF: 0 diclofenac sodium 75 mg Tablet,Delayed Release (Dr/Ec) 75 mg PO UD PRN (Reason: Pain) RF: 0 Discharge Orders: Discharge Order (Routine); Ordered 05/17/20 Ordered By: Hal Banegas Admission Data Admit Date/Time: 05/16/20 13:38 Attending Provider: Cristopher Spencer Admit Provider: Cristopher Spencer Primary Care Provider: Isabela Chan Other Providers: Yamini Alfredo ; Shashank Colon Other Interventions: Discharge Summary Assessment (RN) Last Done: 05/17/20 14:11 DC Date/Time DO NOT enter until pt leaves facility: 05/17/20 16:02
== END 2020-05-17 16:02 | disposition home health service (06) | DRG 470 ==
LOC: ASU 09:04 → 3W 13:38

== ENCOUNTER 2020-08-28 05:03 | Observation (INO) ==
--- NOTE | 2020-08-10 11:16 | History & Physical Report ---
Date of Service August 10, 2020 date of surgery: 08/28/20 procedure: Left Total Knee Arthroplasty Assessment & Plan (1) Arthritis of knee, left: Further care discussed with patient and at this point in time has failed conservative measures and would like to proceed with a left total knee replacement. Plan on discharge will be home with home health physical therapy. DVT prophalaxis with TEDs, SCDs and will also place on aspirin 81 mg p.o. b.i.d. for a month postop. Patient will have follow up appointment in our office two weeks post op for staple/suture removal and re-evaluation. Patient otherwise has no other questions or concerns. History of Present Illness Chief Complaint: left knee pain Primary Care Provider: Viral Acosta MD Mr Fox is a 65 year old male who complains of left knee pain, presents for preop evaluation prior to a left total knee replacement at [facility]. He presents with pain and stiffness on the left side. He states that the symptoms have been chronic non-traumatic, and he ambulates daily with cane. The symptoms occur constantly with intermittent worsening. Currently the patient states that the symptoms are moderate-severe and is described as aching and throbbing. The symptoms are aggravated by daily activities, ascending stairs, descending stairs, exercise, first steps while awake, kneeling, jumping, movement, repetitive activities, sleeping in any position, squatting, standing and walking. In addition to left knee pain the patient is also experiencing decreased mobility, difficulty bending, cracking, crepitus, clicking, difficulty going to sleep, instability, joint pain, limping, nighttime awakening, pain, stiffness, tenderness and weakness. Allergies Allergy/AdvReac Type Severity Reaction Status Date / Time No Known Allergies Allergy Mild Verified 08/01/20 09:04 Home Medications Home Medications Medication Instructions Recorded Confirmed Type amlodipine-benazepril 1 cap PO QAM 04/18/20 08/01/20 History atorvastatin 20 mg PO QAM 04/18/20 08/01/20 History bupropion HCl 150 mg PO QAM 04/18/20 08/01/20 History furosemide 20 mg PO QAM 04/18/20 08/01/20 History omeprazole 20 mg PO QAM 04/18/20 08/01/20 History metoprolol succinate 100 mg PO PM 05/10/20 08/01/20 History oxycodone 5 mg PO Q4H PRN #30 tab MDD 6 05/17/20 08/01/20 Rx sennosides [Senokot] 17.2 mg PO HS #30 tab 05/17/20 08/01/20 Rx aspirin [Aspir-81] 81 mg PO QAM 08/01/20 08/01/20 History hydrocodone-acetaminophen 1 tab PO HS 08/01/20 08/01/20 History Past Med/Surg History Medical History Acid reflux Depression Hyperlipidemia Hypertension Morbid obesity Osteoarthritis Prediabetes A1C 6.4% 03/2020 Surgical History History of carpal tunnel surgery of left wrist History of carpal tunnel surgery of right wrist History of total knee replacement right Family History Unknown No family history of adverse response to anesthesia Social History Smoking Status: Former smoker Second Hand Exposure: No; Hx Alcohol Use: No Hx Substance Use: No Preferred Language: Belarusian Communication Ability: Effective Dye Padder Operator Required: No Beliefs That Will Affect Care: None Current Living Situation: Spouse Feels Safe at Home: Yes Assistive Devices: None Review of Systems Review of Systems: All systems reviewed & are unremarkable except as noted in HPI & below Constitutional: no fever, no chills and no sweats Respiratory: no cough and no dyspnea Cardiovascular: no chest pain, no dyspnea and no orthopnea Gastrointestinal: no abdominal pain, no nausea and no vomiting Musculoskeletal: as per Subjective / HPI Physical Exam Physical Exam: HT: 5ft 8in WT: 132.45kg Constitutional: WD/WN, vitals as above no acute distress Respiratory: normal respiratory effort, lungs clear to auscultation no respiratory distress, no labored breathing and does not use accessory muscles Cardiovascular: RRR, no murmur, no edema Gastrointestinal (Abdomen): normal bowel sounds, soft, nontender, no hepatosplenomegaly Musculoskeletal: Knee: + knee abnormal to inspection (Left Knee- ), + effusion (+1 effusion), + limited ROM of knee (ROM 0/3/110), + knee ROM with crepitation, + joint line tenderness (medial joint line) and + Mahnaz's sign positive; no deformity, no skin erythema, no ecchymosis, no valgus laxity, no varus laxity, anterior drawer test negative, Sultana's sign negative and pivot shift test negative Results & Data Results & Data ([facility]) Laboratory Results Left Knee X-ray: left knee series confirm advanced degenerative changes to the left knee, greatest medial compartments and patellofemoral joint, showing joint space narrowing, osteophyte formation and subchondral sclerosis. no acute bony pathology noted. overall varus alignment.
--- NOTE | 2020-08-20 11:27 | Anesthesiology Consultation ---
Date of Service August 20, 2020 Assessment & Plan (1) Encounter for pre-operative examination: Chart Review Chart Review: Acceptable Risk for Surgery (pending preop Covid testing ) and Patient NOT seen in Pre Admission Testing Per nursing assessment 08/01/2020, patient denies any recent travel. No known Covid positive contacts or Covid related symptoms. Patient will be following up with surgeons office for preop Covid testing time and date= will await results. Seen by PCP 08/06/2020 = seen for preop medical evaluation prior to left TKA. Tolerated right TKA in April 2020 without complications. " Has medical issues are stable. I have no changes to suggest prior to planned procedure. He is a reasonable medical risk for the proposed surgery." Patient aware not to take anti-inflammatories for a week prior to procedure. Right TKA 05/16/2020 = done under [facility]. 4 attempts (two attempts Dr Pedro Alfredo, two attempts Dr. Chaudhary). Done at levels L3-4 and L4-5. History Surgery Operation Date: 08/28/20 07:15 Proposed Procedures p Left Total Knee Arthroplasty - Cristopher Spencer DO Height/Weight Height: 5 ft 8 in Weight: 132.449 kg Allergies Allergy/AdvReac Type Severity Reaction Status Date / Time No Known Allergies Allergy Mild Verified 08/01/20 09:04 Medications Home Medications Medication Instructions Recorded Confirmed Last Taken amlodipine-benazepril 1 cap PO QAM 04/18/20 08/01/20 05/16/20 07:00 atorvastatin 20 mg PO QAM 04/18/20 08/01/20 05/15/20 19:00 bupropion HCl 150 mg PO QAM 04/18/20 08/01/20 05/15/20 05:30 furosemide 20 mg PO QAM 04/18/20 08/01/20 05/15/20 05:00 omeprazole 20 mg PO QAM 04/18/20 08/01/20 05/15/20 05:00 metoprolol succinate 100 mg PO PM 05/10/20 08/01/20 05/16/20 07:00 oxycodone 5 mg PO Q4H PRN #30 tab MDD 6 05/17/20 08/01/20 Unknown sennosides [Senokot] 17.2 mg PO HS #30 tab 05/17/20 08/01/20 Unknown aspirin [Aspir-81] 81 mg PO QAM 08/01/20 08/01/20 Unknown hydrocodone-acetaminophen 1 tab PO HS 08/01/20 08/01/20 Unknown Past Medical History Medical History Acid reflux Depression Hyperlipidemia Hypertension Prediabetes A1C 6.4% 03/2020 Past Family History Family History Unknown No family history of adverse response to anesthesia Past Surgical History Surgical History History of carpal tunnel surgery of left wrist History of carpal tunnel surgery of right wrist History of total knee replacement right Social History Smoking Status: Former smoker Do You Dip or Chew Tobacco: No Smoking End Date: 40 yrs ago Hx Alcohol Use: No Hx Substance Use: No substance use type: does not use Testing Laboratory Results Laboratory Tests 08/10/20 08/10/20 08/10/20 08:57 08:57 08:57 WBC 7.52 Hgb 15.6 Hct 49.2 Plt Count 325 PT INR APTT Sodium 139 Potassium 4.0 Chloride 106 Carbon Dioxide 28 BUN 17 Creatinine 0.84 Glucose 128 H Hemoglobin A1c 5.8 H 08/10/20 08:57 WBC Hgb Hct Plt Count PT 10.8 INR 1.0 APTT 28.8 Sodium Potassium Chloride Carbon Dioxide BUN Creatinine Glucose Hemoglobin A1c 08/10/20= UA: Negative Electrocardiogram Date: 04/23/20 Findings: + SB @ (56bpm) Possible inferior infarct, age undetermined. No significant change compared to EKG from 08/13/11. Chest X-Ray Date: 04/23/20 IMPRESSION: 1. No acute cardiopulmonary findings. 2. Stable prominence of the contour for the ascending aorta since radiographs of August 13, 2011. This could be due to a tortuous or dilated ascending aorta. 3. Stable mild cardiomegaly. Echocardiogram Date: 08/21/15 1. Normal left ventricular size and systolic function. EF 60-65%. No regional wall motion abnormalities visualized. Mild concentric left ventricular hypertrophy. Type II diastolic dysfunction. 2. The left atrium is mildly dilated. 3. Aortic valve sclerosis mild, without significant aortic valvular stenosis. 4. Technically difficult study; enhanced with IV Definity. 5. No prior study available for comparison.
[2020-08-28] MEDS ORDERED: GABAPENTIN 300 MG CAP PO SCH (06:00)
[2020-08-28] MEDS ORDERED: ACETAMINOPHEN 500 MG TAB PO SCH (06:00)
[2020-08-28] MEDS ORDERED: TRANEXAMIC ACID 1,000 MG **IV Pre-op IV SCH (06:00)
[2020-08-28] MEDS ORDERED: CeleBREX 200 MG CAP PO SCH (06:00)
[2020-08-28] MEDS ORDERED: TRANEXAMIC ACID 1,000 MG **IV Intra-op IV SCH (06:00)
[2020-08-28] MEDS ORDERED: ROPIVACAINE 0.5% HCL/PF 150 MG, BUPIVACAINE 0.5% MPF 30 ML, EPINEPHrine 30MG/30ML (OR U... INFIL SCH (06:00)
[2020-08-28] MEDS ORDERED: FAMOTIDINE 20 MG TAB PO SCH (06:00)
[2020-08-28] MEDS ORDERED: dexAMETHasone 4 MG TAB PO SCH (06:00)
[2020-08-28] MEDS ORDERED: LR 500ML BOLUS, THEN 15ML/HR IV SCH (06:00)
[2020-08-28] MEDS ORDERED: METOCLOPRAMIDE HCL 10 MG TABLET PO SCH (06:00)
[2020-08-28] MEDS ORDERED: EPINEPHrine INJ 1 MG/ML AMP ONE (06:18)
[2020-08-28] MEDS ORDERED: BUPIVACAINE 0.5 % 5 MG/1 ML PF 10ML VIAL ONE (06:18)
[2020-08-28] MEDS ORDERED: ROPIVACAINE 0.5% 5 MG/ML 30 ML VIAL ONE (06:18)
[2020-08-28] MEDS ORDERED: PROPOFOL IV EMULSION 10 MG/ML 20 ML VIAL IV ONE ×3 (06:50→08:42)
[2020-08-28] MEDS ORDERED: MIDAZOLAM HCL 1 MG/ML 2ML VIAL ONE ×2 (06:50→07:32)
[2020-08-28] MEDS ORDERED: LIDOCAINE HCL 2% 2 ML VIAL/AMP(20MG/ML) INFIL ONE (06:50)
[2020-08-28] MEDS ORDERED: MEPERIDINE HCL 25 MG/ML CARP/VIAL IV PRN (06:59)
[2020-08-28] MEDS ORDERED: fentaNYL citrate 100 MCG/2 ML VIAL IV PRN (06:59)
[2020-08-28] MEDS ORDERED: ePHEDrine sulfate 50 MG/ML AMP IV PRN (06:59)
[2020-08-28] MEDS ORDERED: ONDANSETRON INJ 2 MG/ML 2 ML VIAL IV PRN ×2 (06:59→10:28)
[2020-08-28] MEDS ORDERED: ATROPINE SULFATE 0.1 MG/ML 10ML SYR IV PRN (06:59)
[2020-08-28] MEDS ORDERED: PHENYLEPHRINE 100MCG/ML 5ML SYR IV PRN (06:59)
[2020-08-28] MEDS ORDERED: LABETALOL HCL IV 5 MG/ML 20ML IV PRN (06:59)
[2020-08-28] MEDS ORDERED: BACITRACIN INJ 50,000 UNIT VIAL ONE (07:00)
[2020-08-28] MEDS ORDERED: ORTHO JOINT ANESTHETIC ONE (07:00)
--- NOTE | 2020-08-28 07:19 | History & Physical Bridge Note ---
Date of Service August 28, 2020 History & Physical Bridge Note I have examined the patient, reviewed the History & Physical and in the interval since the performance of the History & Physical I have noted the following changes of clinical significance: no changes noted
[2020-08-28] MEDS ORDERED: ePHEDrine sulfate 50 MG/ML AMP ONE (08:11)
[2020-08-28] MEDS ORDERED: PHENYLEPHRINE 100MCG/ML 5ML SYR ONE (08:11)
--- NOTE | 2020-08-28 08:32 | Operative Report ---
Post Operative Report Pre & Post Diagnosis Operation Date: 08/28/20 07:15 Pre-Op Diagnosis: Unilateral Primary Osteoarthritis, Left Knee Post-Op Diagnosis: Unilateral Primary Osteoarthritis, Left Knee I identified the patient and participated in the time-out.: Yes Procedure Utilizing [employer] journey 2 patient matched total knee arthroplasty size 6 femur 4 tibia 12 polythirty 2 oval patella Operation Date: 08/28/20 07:15 Actual Procedures p Left Total Knee Arthroplasty(Left) - Cristopher Spencer DO Surgeon Cristopher Spencer DO Broadcast Operations Engineer Ori CHAVEZ Estimated Blood Loss 5 Findings Consistent with Post-Op Diagnosis Patient presents with severe end-stage tricompartmental degenerative joint disease left knee no response to conservative management findings include marginal osteophyte subchondral sclerosis eburnated [id number] moderate to large effusion varus alignment flexion contracture 60 degrees Specimens Bone and cartilage Drains Medium bore Hemovac Anesthesia Type MAC Spinal Regional Complications none Disposition Accompanied Patient To Recovery: No Disposition: Recovery Room Indications Patient presents for left total knee arthroplasty after failed attempted conservative management clinic physical therapy anti-inflammatories relative rest activity modification corticosteroid injection Visco supplementation above intraoperative findings no time surgery Description of Procedure After proper prepping and draping of the left lower extremity anterior midline incision was made over the region of the extensor extensor mechanism after meticulous hemostasis was obtained and maintained in subcutaneous tissues a medial parapatellar incision was made The patella was subluxed lateralward the medial lateral gutter were cleaned from any hypertrophic synovitis and scar tissue of the distal femoral block was placed and the distal femoral osteotomy cut was made subsequently the chamfers anterior and posterior osteotomy cuts were made utilizing the 4-in-1 block the tibia was subsequently subluxed anteriorward medial and ateral meniscal remnants were excised in their entirety remnants of the anterior and posterior cruciate ligaments were excised in their entirety excellent exposure of the proximal tibia was obtained the tibial osteotomy guide was placed on the proximal tibial osteotomy cut was made once again the knee was irrigated with copious amounts of sterile saline solution the patella was subsequently everted lateralward thickened scar tissue around the patella was removed the patella was subsequently cut utilizing a freehand technique and was drilled prepared for final preparation and placement of patella socially flexion-extension gaps were checked and the equal and symmetric trials were placed to the appropriate femoral and tibial trials with poly-spacer being placed for equal flexion and extension gaps and full range of motion including extension to 0 and flexion to 140 the trial components after having been taken to recovery range of motion was subsequently removed meticulous hemostasis was obtained and maintained subsequently a knee block injection of joint cocktail including ropivacaine 0.5% 150 mg. Bupivacaine 0.5% epinephrine 1-200,030 mL's toradol 30 mg dexamethasone 4 mg ketamine 10 mg clonidine 100 micrograms normal saline solution 30 mg was infiltrated into the soft tissues of the posterior knee medial lateral gutters and periosteal synovium special attention was paid to protect neurovascular structures at all times subsequently trial components having been removed the knee was irrigated with sterile saline solution. debris was removed the proximal tibia was subsequently prepared and was made ready for the placement of the tibial component tibial component was also cemented and tamped into position the femoral component was subsequently placed and cemented in the position the patellar component was subsequently cemented in position because hemostasis once again obtained and maintained wound having been thoroughly irrigated with debridement and debridement lavage was performed as well as a medial parapatellar incision closed with #1 Vicryl in interrupted fashion subcutaneous was closed with #2 Vicryl skin was closed with skin clips. PA-C was necessary for prepping and drapping as well as wound c losure of deep fascia Sub cutaneous tissue and skin and was necessary for the case. A sterile compressive dressing was placed patient was taken to recovery in stable condition of report dictated by Tj I attest to the content of the Intraoperative Record and any orders documented therein. Any exceptions are noted below. I attest to the content of the Intraoperative Record and any orders documented therein. Any exceptions are noted below.
--- NOTE | 2020-08-28 09:39 | XRay Report ---
XR knee LT 1 or 2V routine HISTORY: 65 years-old Male Surgical Post Op left knee total joint arthroplasty COMPARISON: None TECHNIQUE: 2 views of the left knee FINDINGS: Left knee total joint arthroplasty and patella resurfacing. There is satisfactory alignment without a cute fracture on expected opaque foreign body. Expected post surgical soft tissue swelling and deep t issue air with surgical drainage catheter. IMPRESSION: Left knee total joint arthroplasty and patella resurfacing with expected postoperative ch anges. ACT 112: Negative or not required by law. The above report was generated using voice recognition software. It may contain grammatical, syntax o r spelling errors. Electronically signed by: Imtiaz Rosa M.D. 08/28/2020 9:38 AM
[2020-08-28] MEDS ORDERED: METOCLOPRAMIDE HCL INJ 5 MG/ML 2 ML VIAL IV PRN (10:28)
[2020-08-28] MEDS ORDERED: bisacodyL 10 MG SUPP PR PRN (10:28)
[2020-08-28] MEDS ORDERED: NALOXONE HCL 0.4 MG/1 ML VIAL/CARP IV PRN (10:28)
[2020-08-28] MEDS ORDERED: diphenhydrAMINE Capsule 25 MG CAP PO PRN (10:28)
[2020-08-28] MEDS ORDERED: HYDROmorphone INJ 1 MG/ML SYRINGE IV PRN (10:28)
[2020-08-28] MEDS ORDERED: MAGNESIUM HYDROXIDE SUSP 30 ML UDC PO PRN (10:28)
[2020-08-28] MEDS ORDERED: SODIUM CHLORIDE 0.9% 1000ML 1,000 ML IV SCH (10:28)
--- NOTE | 2020-08-28 10:41 | Anesthesiology Progress Note ---
Date of Service August 28, 2020 Anesthesia Post Procedure Vital Signs Vital Signs: Temp Pulse Pulse Resp BP Pulse Ox 08/28/20 10:05 36.3 C L 58 L 18 110/59 L 95 08/28/20 09:50 62 20 120/64 93 08/28/20 09:40 67 16 104/60 93 08/28/20 09:30 65 20 108/60 94 08/28/20 09:20 67 18 105/60 97 08/28/20 09:11 36.9 C 70 18 95/55 L 95 08/28/20 06:25 62 20 149/78 H 94 08/28/20 05:52 36.9 C 62 20 138/84 95 Pain Intensity Left Knee: Pain Intensity: 0 Transfer of Care Handoff Completed per policy Notes Mental Status: alert / awake / arousable Patient Amnestic to Procedure: Yes Nausea / Vomiting: adequately controlled Pain: adequately controlled Airway Patency, RR, SpO2: stable & adequate BP & HR: stable & adequate Hydration State: stable & adequate Neuraxial Anesthesia: was administered and sensory block is resolving Anesthetic Complications: no major complications apparent and Pt Satisfied with anesthetic care
[2020-08-28] MEDS: KETOROLAC TROMETHAMINE 15 MG/ML VIAL IV SCH ×3 (12:36→21:55)
[2020-08-28] MEDS: ACETAMINOPHEN 500 MG TAB PO SCH ×2 (14:35→21:55)
[2020-08-28] MEDS: ceFAZolin 2000MG 2,000 MG/15 ML SYR IV SCH ×2 (14:35→22:29)
[2020-08-28] MEDS: oxyCODONE HCL IR 5 MG TAB (IMMEDIATE RELEASE) PO PRN (18:12)
[2020-08-28] MEDS: ASPIRIN 81 MG ECTAB PO SCH (20:16)
[2020-08-28] MEDS: DOCUSATE SODIUM 100 MG CAP PO SCH (20:16)
[2020-08-28] MEDS ORDERED: SENNA 8.6 MG TAB PO SCH (21:00)
[2020-08-28] MEDS ORDERED: METOPROLOL SUCC 50MG EXT REL TAB PO SCH (21:00)
[2020-08-29] MEDS: oxyCODONE HCL IR 5 MG TAB (IMMEDIATE RELEASE) PO PRN ×3 (00:07→11:30)
[2020-08-29] MEDS: KETOROLAC TROMETHAMINE 15 MG/ML VIAL IV SCH (04:11)
[2020-08-29] MEDS: ACETAMINOPHEN 500 MG TAB PO SCH ×2 (05:31→14:35)
[2020-08-29 07:29] LABS: Hematocrit (blood only) 44.1 % (42-52); Mean Corpuscular Hemoglobin 26.2 pg (25-34); Mean Corpuscular Hgb Conc 31.7 g/dL (32-36); Mean Corpuscular Volume 82.4 fL (80-100); Mean Platelet Volume 9.4 fL (7.4-10.4); Platelet Count 294 K/uL (130-400); RDW Standard Deviation 45.2 fL (36.4-46.3); Red Blood Count 5.35 M/uL (4.7-6.1); White Blood Count 16.28 K/uL (4.8-10.8)
[2020-08-29] MEDS: ASPIRIN 81 MG ECTAB PO SCH (07:38)
[2020-08-29] MEDS: DOCUSATE SODIUM 100 MG CAP PO SCH (07:38)
[2020-08-29 07:57] LABS: BUN Creatinine Ratio 27.3 (10-20); Calcium 8.8 mg/dl (8.5-10.1); Creatinine Clr Calc Pharmacy 91.8 ml/min; Est GFR (African American) 85.9; Est GFR (Non-African American) 74.1; Potassium 4.2 mmol/L (3.5-5.1)
--- NOTE | 2020-08-29 08:21 | Orthopedic Progress Note ---
Date of Service August 29, 2020 Assessment & Plan (1) Arthritis of knee, left: Postop day 1 status post left total knee arthroplasty. Leukocytosis-patient currently asymptomatic. Likley secondary to surgical stress and preoperative steroids. PT/OT protocols. Weightbearing as tolerated. DVT prophylaxis-aspirin p.o. twice daily, EVELYNE Becerra Pain management as written Discharge planning-patient is planning for home health services upon discharge. Admission and Anticipated Discharge Date Admission Date: August 28, 2020 Subjective Postop day 1 Patient currently sitting up in his chair at the bedside. No complaints this morning. He feels well. Pain is controlled. Denies any shortness of breath, chest pain, lightheadedness. Physical Exam Physical Exam: Dressings are clean, dry, and intact. Calves are soft nontender. Neurovascular is intact. Toes are mobile. He has good dorsiflexion and plantarflexion of the left foot and ankle. HEMOVAC drainage was 150 mL from the previous shift. Results & Data ([facility]) Vital Signs (Past 12 Hours) Vital Signs Temp Pulse Resp BP BP Pulse Ox 08/29/20 07:28 36.5 C 62 16 168/83 H 97 08/29/20 03:15 36.4 C L 62 15 144/76 H 94 08/28/20 23:14 36.5 C 62 16 152/70 H 92 08/28/20 20:18 73 157/78 H 95 Laboratory Results Laboratory Results WBC 16.28 K/uL (4.8-10.8) H 08/29/20 06:57 RBC 5.35 M/uL (4.7-6.1) 08/29/20 06:57 Hgb 14.0 g/dL (14.0-18.0) 08/29/20 06:57 Hct 44.1 % (42-52) 08/29/20 06:57 MCV 82.4 fL (80-100) 08/29/20 06:57 MCH 26.2 pg (25-34) 08/29/20 06:57 MCHC 31.7 g/dL (32-36) L 08/29/20 06:57 RDW Std Deviation 45.2 fL (36.4-46.3) 08/29/20 06:57 RDW Coeff of Imani 15.0 % (11.5-14.5) H 08/29/20 06:57 Plt Count 294 K/uL (130-400) 08/29/20 06:57 MPV 9.4 fL (7.4-10.4) 08/29/20 06:57 Sodium 139 mmol/L (136-145) 08/29/20 06:57 Potassium 4.2 mmol/L (3.5-5.1) 08/29/20 06:57 Chloride 110 mmol/L (98-107) H 08/29/20 06:57 Carbon Dioxide 24 mmol/L (21-32) 08/29/20 06:57 Anion Gap 5.0 (3-11) 08/29/20 06:57 BUN 29 mg/dl (7-18) H 08/29/20 06:57 Creatinine 1.05 mg/dl (0.6-1.4) 08/29/20 06:57 Est Cr Clr Drug Dosing 91.8 ml/min 08/29/20 06:57 Est GFR ( Amer) 85.9 08/29/20 06:57 Est GFR (Non-Af Amer) 74.1 08/29/20 06:57 BUN/Creatinine Ratio 27.3 (10-20) H 08/29/20 06:57 Glucose 135 mg/dl (70-99) H 08/29/20 06:57 Calcium 8.8 mg/dl (8.5-10.1) 08/29/20 06:57 Blood Type O Negative 08/28/20 06:11 Antibody Screen NEGATIVE 08/28/20 06:11
[2020-08-29] MEDS ORDERED: buPROPion XL 150 MG TABCR PO SCH (09:00)
[2020-08-29] MEDS ORDERED: MULTIVITAMIN TAB PO SCH (09:00)
[2020-08-29] MEDS ORDERED: ATORVASTATIN 20 MG TAB PO SCH (09:00)
[2020-08-29] MEDS ORDERED: amLODIPine BESYLATE 5 MG TAB PO SCH (09:00)
[2020-08-29] MEDS ORDERED: ENALAPRIL MALEATE 10 MG TAB PO SCH (09:00)
[2020-08-29] MEDS ORDERED: CeleBREX 200 MG CAP PO SCH (21:00)
[2020-08-30] MEDS ORDERED: FUROSEMIDE 20 MG TAB PO SCH (09:00)
--- NOTE | 2020-08-30 11:39 | Discharge Summary ---
Date of Service date of discharge: August 29, 2020 date of admission: 08/28/20 Admission HPI Per Admitting Provider Mr Fox is a 65 year old male who complains of left knee pain, presents for preop evaluation prior to a left total knee replacement at [facility]. He presents with pain and stiffness on the left side. He states that the symptoms have been chronic non-traumatic, and he ambulates daily with cane. The symptoms occur constantly with intermittent worsening. Currently the patient states that the symptoms are moderate-severe and is described as aching and throbbing. The symptoms are aggravated by daily activities, ascending stairs, descending stairs, exercise, first steps while awake, kneeling, jumping, movement, repetitive activities, sleeping in any position, squatting, standing and walking. In addition to left knee pain the patient is also experiencing decreased mobility, difficulty bending, cracking, crepitus, clicking, difficulty going to sleep, instability, joint pain, limping, nighttime awakening, pain, stiffness, tenderness and weakness. Principal Diagnosis left knee osteoarthritis Discharge Exam Vital Signs Temp 36.5 C 08/29/20 14:39 Pulse 73 08/29/20 14:39 Resp 16 08/29/20 14:39 BP 144/76 H 08/29/20 14:39 Pulse Ox 97 08/29/20 14:39 Intake & Output 08/29/20 08/30/20 08/30/20 18:59 06:59 18:59 Intake Total 575 / 575 Output Total 125 / 125 Balance 450 / 450 Weight 128.639 kg Intake: Oral 575 / 575 Output: Drain Output 125 / 125 Left Knee Hemovac 125 / 125 Other: # Unmeasured Voids 150 Constitutional WD/WN, vitals as above + not well nourished and no acute distress Musculoskeletal left knee: NVDI, calf SNT, negative marvin sign. DP palpable, able to wiggle toes/ankle movement without difficulty. RAMA dressing clean dry and intact. expected post-operative bruising noted. Discharge Data Allergies Allergy/AdvReac Type Severity Reaction Status Date / Time No Known Allergies Allergy Mild Verified 08/28/20 05:45 Consultations 08/28/20 10:28 Consult Case Management - Discharge Planning Routine Procedures Performed Operation Date: 08/28/20 07:15 Actual Procedures p Left Total Knee Arthroplasty(Left) - Cristopher Spencer DO Ordered Studies 08/28/20 05:00 US - OR guided needle placemen Routine Hospital Course (1) Arthritis of knee, left: Postop day 1 status post left total knee arthroplasty. Leukocytosis-patient currently asymptomatic. Likley secondary to surgical str ess and preoperative steroids. PT/OT protocols. Weightbearing as tolerated. DVT prophylaxis-aspirin p.o. twice daily, SCDs, EVELYNE umaña Pain management as written Discharge planning-patient is planning for home health services upon discharge. Total Time Total Time Spent Total Time Spent (In Minutes): 20 Total Time Includes: Examination of the Patient, Discharge Planning and Medication Reconciliation Discharge Plan Discharge Items Patient Disposition: Home - Home Health Services Reason For Visit: Unilateral Primary Osteoarthritis, Left Knee Discharge Diagnosis: left total knee replacement Activity: Per Instructions section Lifting: Wait until after follow-up appointment Weightbearing: Left weightbearing Weightbearing Comment: WBAT with walker Non-emergency contact: Surgeon Call non-emergency contact if: you have any medication questions, your pain is not controlled, your temperature is above 101, your wound has increased redness, your wound has increased drainage and your wound pain has increased Follow-up/Referrals: Ori Delacruz PA-C [Physician Repairer Cylinder Heads] - (f/u 14-16 days post op as scheduled.) Viral Acosta MD [Primary Care Provider] - Diet: Regular Addtl Attending Provider Instructions: ACTIVITY RECOMMENDATIONS: SELF CARE INSTRUCTIONS AFTER TOTAL KNEE REPLACEMENT A. You may need to continue a physical therapy program after discharge from the hospital. There are several options available to you. Your doctor will assist you in selecting the best one for you. 1. An out-patient facility 2 to 3 times a week for therapy or home therapy. 2. Continue working on all exercises taught to you in the hospital. Your goals should be to increase bending of your knee to 90 degrees and beyond and to fully straighten your knee. B. You may progress at your own pace from walking with a walker or crutches to a cane; then to no assistive devices. C. Make walking a part of your daily routine. Be up as much as comfortable with rest periods throughout the day. Rest with leg elevation is very important. Use the ice wrap frequently for the first 3-4 weeks. D. There are no restrictions on activities. You may ride in a car, shop, participate in national sales trainer and all social activities. E. Wear the long elastic stockings (EVELYNE hose) 20 hours a day for 2 weeks after surgery. They can be removed several times a day for laundering and for a bath. F. You may shower, no tub baths until cleared by your doctor. SPECIAL CARE INSTRUCTIONS: VERY IMPORTANT TO READ AND REVIEW A. There are a few signs you need to watch for after you are home. Call [facility] if you notice any of the followin. Increased severe knee pain. Some pain is expected especially when you exercise. 2. Increased swelling in your leg or knee; pain or swelling of the calf muscle in either lower leg. 3. Any fluid drainage from the incision. 4. Shortness of breath or chest pain. B. Please call [facility] at if you have any concerns or questions about your operation or recovery. The doctor or his nurse will return your call promptly. C. You must take antibiotics before dental work, bladder, bowel or other surgery. Your doctor will provide you with a permanent care to carry describing this precaution. IMPORTANT: * REMEMBER TO TAKE ASPIRIN, 81 MG, TWICE DAILY FOR 4 WEEKS UNLESS OTHERWISE DIRECTED. THIS IS YOUR BLOOD THINNER. * HIGH RISK PATIENTS MAY BE PRESCRIBED A STRONGER BLOOD THINNER. THIS WILL BE PROVIDED AT DISCHARGE. * CALL IF INCREASED PAIN, REDNESS, DRAINAGE OR FEVER GREATER THAT 101. * WEAR EVELYNE HOSE 20 HOURS PER DAY FOR 2 WEEKS. * RAMA Dressing- This is a large suction dressing covering your incision. This will help pull any excess drainage from the wound and allow your incision to heal properly. You may shower with this if you can keep the unit outside of the shower. If any bleeding or leakage is noted please call your doctor's office. This will remain on your incision for 7 days and then should be removed. This can be done yourself or by the home nursing staff if applicable. The entire unit is disposable once removed. Once removed, keep incision clean and dry. If redness or drainage is noted, please call your surgeon. Once Rama has been removed, follow these instructions: DERMABOND Prineo- This is a mesh tape dressing that is covered with glue. It should remain in place until the incision is properly healed, usually 10-14 days. This dressing is designed to naturally slough off. You may trim the excess mesh tape as it peels off. Incision may be briefly wet in a shower. Dry immediately by blotting with a clean, dry towel. Do not bath or swim until instructed by your doctor. Do not scratch, rub, or pick at the dressing. Do not apply any topical ointments or lotions until dressing is completely removed and/or instructed by your doctor. There may be a small piece of suture material at one end of your incision. Do not pull or trim this. If it is bothersome or catching on clothing, you may cover it with a band-aid. IF INCISION IS LEAKING THROUGH DRESSING, CALL THE OFFICE . FOLLOW UP VISIT: If appointment is not already scheduled: Please call [facility] to make a follow-up appointment for 2 weeks after your surgery at . Stand-Alone Forms: My [facility] [place] [employer], Opioid Pain Management, Smoking Cessation Medications and DC Order Prescriptions: New acetaminophen 500 mg Tablet 1,000 mg PO Q8 14 Days Qty: 84 RF: 0 aspirin 81 mg Tablet,Delayed Release (Dr/Ec) 81 mg PO BID 30 Days Qty: 60 RF: 0 celecoxib [Celebrex] 200 mg Capsule 200 mg PO BID 30 Days Qty: 60 RF: 0 polyethylene glycol 3350 [Miralax] 17 gram powder in packet 17 g PO DAILY PRN (Reason: constipation) Qty: 5 RF: 0 cefadroxil 500 mg capsule 500 mg PO BID Qty: 28 RF: 1 oxycodone 5 mg Tablet 5 - 10 mg PO Q4H MDD 6 PRN (Reason: pain) Qty: 36 RF: 0 Continued atorvastatin 20 mg Tablet 20 mg PO QAM RF: 0 omeprazole 20 mg Capsule,Delayed Release(Dr/Ec) 20 mg PO QAM RF: 0 furosemide 20 mg Tablet 20 mg PO QAM RF: 0 amlodipine-benazepril 10-20 mg Capsule 1 cap PO QAM RF: 0 bupropion HCl 150 mg Tablet Extended Release 24 Hr 150 mg PO QAM RF: 0 metoprolol succinate 100 mg Tablet Extended Release 24 Hr 100 mg PO PM RF: 0 Discontinued hydrocodone-acetaminophen 7.5-325 mg Tablet 1 tab PO HS RF: 0 aspirin [Aspir-81] 81 mg Tablet,Delayed Release (Dr/Ec) 81 mg PO QAM RF: 0 Discharge Orders: Discharge Order (Routine); Ordered 08/29/20 Ordered By: Hal Montero/Other Patient Handouts: DVT Post Op Prevention Admission Data Admit Date/Time: 08/28/20 09:20 Attending Provider: Cristopher Spencer Admit Provider: Cristopher Spencer Primary Care Provider: Viral Acosta Other Providers: [facility],Home Healthcare Other Interventions: Discharge Summary Assessment (RN) Last Done: 08/29/20 14:39
== END 2020-08-29 15:40 | disposition home health service (06) ==
LOC: ASU 05:03 → 3E 05:03
DX: Z79.899 Other long term (current) drug therapy; M17.12 Unilateral primary osteoarthritis, left knee; Z68.41 Body mass index [BMI] 40.0-44.9, adult; Z79.82 Long term (current) use of aspirin; Z96.651 Presence of right artificial knee joint; Z87.891 Personal history of nicotine dependence; E66.01 Morbid (severe) obesity due to excess calories; E78.5 Hyperlipidemia, unspecified; I10 Essential (primary) hypertension